=== PATIENT | male | born 1940 | race Caucasian/White ===

== ENCOUNTER → 2018-09-06 | Outpatient (CLI) | payer MEDICARE, OTHER ==
--- NOTE | 2018-09-07 07:36 | NM ---
EXAMINATION TYPE: NM bone scan whole body DATE OF EXAM: 09/06/2018 COMPARISON: Prior bone scan August 11, 2016 HISTORY: Prostate cancer. Delayed whole-body scanning was performed following the injection of 24 mCi Tc 99m MDP. Images acqui red 3 hours post injection. FINDINGS: There is increasing area of radiotracer uptake centered at roughly T9 vertebra with larger appearance and more superior and inferior extension. Focus of increased radiotracer uptake right L4 vertebra on prior study is less well seen on current study. Multifocal areas throughout the bilateral ribs on pr ior exam are likely still present but also less well seen on current study. Some kidney uptake is sti ll present making SuperScan unlikely. Persistent focus of uptake right lower cervical spine is redemo nstrated. IMPRESSION: As above, somewhat atypical appearance for osseous metastatic disease but this would be f avored given patient's history. Need to further investigate with additional imaging should be based o n clinical correlation and PSA value.
== END | disposition home or self-care (01) ==
LOC: RADNMMAIN 10:50
PROVIDERS: ATTEND Urology
DX: C79.51 Secondary malignant neoplasm of bone (principal); C61 Malignant neoplasm of prostate
CPT/HCPCS: 78306; A9503